=== PATIENT | male | born 1940 | race Asian ===

== ENCOUNTER 2018-07-20 04:44 | Emergency (ER) | payer MEDICARE, OTHER ==
[~2018-07-20] VITALS: Ht 170.2 cm; Wt 76.4 kg
[2018-07-20] MEDS ORDERED: CALC-1038 PO (04:55)
[2018-07-20] MEDS ORDERED: ASPI-1182 PO (04:55)
[2018-07-20] MEDS ORDERED: LISI-661 PO (04:55)
[2018-07-20] MEDS ORDERED: MULT-1290 PO (04:55)
[2018-07-20] MEDS ORDERED: AMLO-512 PO (04:55)
[2018-07-20] MEDS ORDERED: OMEG-135 PO (04:55)
[2018-07-20 05:45] LABS: ANION GAP 9 mmol/L (8-16); BASOPHILS % (AUTO) 0.7 % (0.0-2.0); CALCIUM, TOTAL 9.6 mg/dL (8.8-10.5); CARBON DIOXIDE 29 mmol/L (22-29); CHLORIDE 102 mmol/L (98-107); CREATININE 0.94 mg/dL (0.60-1.30); EOSINOPHILS % (AUTO) 7.2 % (1.0-6.0); GLUCOSE,RANDOM 102 mg/dL (70-110); HEMATOCRIT 46.6 % (41-53); HEMOGLOBIN 16.3 g/dL (13.5-17.5); LYMPHOCYTES # (AUTO) 1.9 K/uL (1.0-4.8); MEAN CORPUSCULAR HEMOGLOBIN 32.7 pg (26.0-34.0); MEAN CORPUSCULAR HGB CONC 34.9 G/dL (31.0-37.0); MEAN CORPUSCULAR VOLUME 94 fL (80-100); MONOCYTES # (AUTO) 0.6 K/uL (0.1-1.0); MONOCYTES % (AUTO) 7.9 % (2.0-9.0); NEUTROPHILS # (AUTO) 4.5 K/uL (1.8-7.7); NEUTROPHILS % (AUTO) 59.2 % (40.0-70.0); PLATELET COUNT (AUTO) 282 K/uL (150-450); POTASSIUM 4.6 mmol/L (3.5-5.1); RED BLOOD CELL COUNT(AUTO) 4.98 MIL/uL (4.50-5.90); RED CELL DISTRIBUTION WIDTH 12.3 % (11.5-14.5); SODIUM SERUM 140 mmol/L (136-145); UREA NITROGEN, BLOOD 14 mg/dL (7-18)
[2018-07-20 05:48] LABS: GLOMERULAR FILTR. RATE CALC > 60 mL/min (>60)
[2018-07-20 05:50] LABS: ALANINE AMINOTRANSFERASE 33 U/L (12-78); ALBUMIN 4.1 g/dL (3.4-5.0); ALKALINE PHOSPHATASE 59 U/L (46-116); ASPARTATE AMINOTRANSFERASE 18 U/L (15-37); BILIRUBIN,TOTAL 1.4 mg/dL (0.1-1.0); TOTAL PROTEIN, SERUM 7.3 g/dL (6.4-8.2)
[2018-07-20 06:57] VITALS: BP 140/81
== END 2018-07-20 07:07 | disposition home or self-care (01) ==
LOC: EMS 04:47
DX: I10 Essential (primary) hypertension (principal); E78.00 Pure hypercholesterolemia, unspecified; Z79.899 Other long term (current) drug therapy; Z79.82 Long term (current) use of aspirin
CPT/HCPCS: 93005